=== PATIENT | male | born 1955 | race African-American/Black ===

== ENCOUNTER → 2016-08-22 | Outpatient (CLI) | payer BC ==
[~2016-08-22] MED LIST: ASPI325T4 PO; ATOR40TA59 PO; FURO80TA3 PO; IOHEXOL 240 MG/ML 50ML VIAL. PO ONE; IOHEXOL 300 MG/ML 100ML VIAL. IV ONE; LISI10TA2 PO; METF500T9 PO; METO100T5 PO; WARF5TAB7 PO
--- NOTE | 2016-08-22 13:22 | KCIC ---
Examination: CT of the abdomen pelvis with oral and IV contrast. HISTORY History of abdominal distention, pain for 1 month. COMPARISON 08/21/2005. TECHNIQUE Axial CT images of the abdomen pelvis were performed with oral and IV contrast. Coronal sagittal reformats were performed. Exposure: One or more of the following dose reduction technique were utilized for this examination: 1. Automated exposure control. 2.Adjustment of MA and /or KV according to patient size. 3. Use of iterative reconstruction technique. Findings: Small right pleural effusion identified. Partially visualized moderate cardiomegaly. There is diffuse decreased attenuation noted through the liver likely hepatic steatosis. There is questionable minimal nodularity identified in the left lobe of the liver. Early cirrhotic change is not completely excluded. Visualized spleen, adrenal grossly appears unremarkable. The gallbladder is mildly distended. Calcified densities identified within the proximal gallbladder likely gallstones. There is some stranding identified about the proximal gallbladder and common bile duct region with some faint fat stranding. However given the mild thickened appearance of the gallbladder wall, cholecystitis not completely excluded. The bilateral kidneys enhance symmetrically. The small bowel is nondilated. Feces and gas noted throughout the colon. Urinary bladder is mildly distended. Moderate aortic atherosclerosis. The infrarenal abdominal aorta measures 2.5 centimeters in transverse dimension. There is a moderate size fat and omentum containing umbilical hernia identified containing a small neck. The neck of the umbilical hernia measures 1.9 centimeters in transverse dimension. The hernia itself measures 6.9 x 6.8 centimeters in AP so, transverse dimension. Mild degenerative changes identified in the lumbar spine. Few prominent appearing mesenteric and retroperitoneal lymph nodes identified. There prominent appearing bilateral pelvic and inguinal lymph nodes identified with the largest measuring 1.8 centimeters on the right. Mild edema identified in the bilateral lateral abdominal wall region likely mild anasarca. IMPRESSION - Mild thickened appearance of the wall of the gallbladder with gallstones within. There is some stranding identified about the proximal gallbladder and the common bile duct region could be secondary to cholecystitis or due to underlying liver disease. Ultrasound right upper quadrant is recommended . - Hepatomegaly with decreased attenuation noted throughout the liver likely hepatic steatosis. There is some suggestion of minimal nodularity of the left lobe of the liver. Early cirrhotic change is not completely excluded. - Few prominent mesenteric and retroperitoneal lymph nodes identified with the largest measuring 1.6 centimeters in the retroperitoneum. There are few prominent appearing bilateral pelvic and inguinal lymph nodes identified with the largest measuring 1.8 centimeters on the right. These are nonspecific findings. Lymphoproliferative conditions such as lymphoma not completely excluded - Moderate-sized fat and omentum containing umbilical hernia. - Enlarged appearing inferior vena cava with distended hepatic veins could be due to elevated right heart pressures from congestive heart failure changes. Minimal right pleural effusion partially visualized. was informed at time of dictation. Electronically signed by: Marcello Armenta (Aug 22, 2016 13:20:56)
== END | disposition home or self-care (01) ==
LOC: KCIC CT 10:12
PROVIDERS: ATTEND Family Medicine
DX: J90 Pleural effusion, not elsewhere classified (principal); I51.7 Cardiomegaly
CPT/HCPCS: 74177; 82565; Q9966; Q9967